=== PATIENT | female | born 1990 | race Caucasian/White ===

== ENCOUNTER → 2017-12-16 15:34 | Outpatient (CLI) | payer SELFPAY ==
[2017-12-16 19:41] LABS: Chlamydia Trachomatis by PCR Negative (Negative); Neisserai gonorrhoeae by PCR Negative (Negative); Probe Check PASS; Sample Adequacy Control PASS; Specimen Processing Control PASS
[2017-12-22 14:38] LABS: HPV Reflexed? NOT INDICATED
== END ==
PROVIDERS: Visit Provider Obstetrics & Gynecology
DX: Z12.4 Encounter for screening for malignant neoplasm of cervix (principal); Z11.3 Encounter for screening for infections with a predominantly sexual mode of transmission
CPT/HCPCS: 87491; 87591; 88175; G0145

== ENCOUNTER → 2017-12-31 10:31 | Outpatient (CLI) | payer SELFPAY ==
[2017-12-31 12:05] LABS: Color, Urine Yellow (Yellow); Glucose, Dipstick Normal (Normal); Ketone-Dipstick Negative (Negative); Leukocyte Esterase-Dipstick 25 /ul (Negative); Nitrite-Dipstick Negative (Negative); Occult Blood-Urine 250 /ul (Negative); Protein-Dipstick 15 mg/dl (Negative); Urine Bilirubin Dipstick Negative (Negative); Urine Clarity Sl. Cloudy (Clear); Urine Urobilinogen Normal (Normal)
[2017-12-31 12:07] LABS: Absolute Lymphocyte Count 1.01 X10^3/ul (0.83-4.51); Absolute Neutrophil Count 3.9 X10^3/uL (2.0-7.7); Basophil# 0.01 X10^3/uL; Basophil% 0.2 % (0-1); Eosinophil# 0.02 X10^3/uL; Eosinophils% 0.4 % (0-5); Hematocrit 38.4 % (37-47); Hemoglobin 13.3 g/dl (12.0-15.0); Lymphocyte # 1.01 X10^3/ul (4.0); Lymphocyte % 18.9 % (19-41); Mean Corp Hgb Conc 34.6 g/gl (32-36); Mean Corpuscular Hgb 31.1 pg (27.0-32.0); Mean Corpuscular Volume 89.7 fL (81-99); Mean Platelet Vol. 11.7 fl (6.2-12.0); Monocyte# 0.36 X10^3/uL; Monocyte% 6.8 % (0-10); Neutrophil # 3.93 X10^3/uL (2.7-7.7); Neutrophil % 73.7 % (47-70); POSITIVE COUNT NO; POSITIVE DIFFERENTIAL NO; POSITIVE MORPHOLOGY NO; Platelet Count 185 K/mm3 (150-450); RBC Distribution Width CV 11.9 % (11.6-14.6); RBC Distribution Width SD 38.1 fl (35.1-43.9); Red Blood Count 4.28 M/mm3 (4.2-5.4); White Blood Count 5.3 K/mm3 (4.4-11.0)
[2017-12-31 13:01] LABS: HIV - WCH Non-Reactive (Nonreactive); Rubella IgG 200.2 IU/mL
[2018-01-01 01:58] LABS: Prenatal RPR NONREACTIVE (NONREACTIVE)
[2018-01-01 11:24] LABS: HEPATITIS B SURFACE AG Negative (Negative); Hep C Antibodies <0.1 s/co ratio (0.0-0.9)
== END ==
PROVIDERS: Visit Provider Obstetrics & Gynecology
DX: Z34.81 Encounter for supervision of other normal pregnancy, first trimester (principal)
CPT/HCPCS: 36415; 81002; 84443; 85025; 86703; 86762; 86803; 87340

== ENCOUNTER → 2018-05-12 10:14 | Outpatient (CLI) | payer OTHER, SELFPAY ==
[2018-05-12 10:40] LABS: Hematocrit 34.5 % (37-47); Hemoglobin 11.5 g/dl (12.0-15.0); Mean Corp Hgb Conc 33.3 g/gl (32-36); Mean Corpuscular Hgb 31.3 pg (27.0-32.0); Mean Corpuscular Volume 93.8 fL (81-99); Mean Platelet Vol. 10.5 fl (6.2-12.0); Platelet Count 180 K/mm3 (150-450); RBC Distribution Width CV 13.2 % (11.6-14.6); RBC Distribution Width SD 44.9 fl (35.1-43.9); Red Blood Count 3.68 M/mm3 (4.2-5.4); White Blood Count 6.4 K/mm3 (4.4-11.0)
[2018-05-12 10:42] LABS: Scan Indicated on CBC? Y/N NO
[2018-05-12 11:21] LABS: Glucose Challenge Gest 1H 50g 68 mg/dL (70-140)
== END ==
PROVIDERS: Visit Provider Obstetrics & Gynecology
DX: Z34.83 Encounter for supervision of other normal pregnancy, third trimester (principal)
CPT/HCPCS: 36415; 82950; 85027; 86850

== ENCOUNTER → 2018-07-09 13:03 | Outpatient (CLI) | payer OTHER, SELFPAY | PROVIDERS: Visit Provider Obstetrics & Gynecology | DX: Z36.85 Encounter for antenatal screening for Streptococcus B (principal) | CPT/HCPCS: 87081 ==

== ENCOUNTER 2018-08-08 06:40 | Inpatient (IN) | payer SELFPAY ==
[2016-05-03 18:51] VITALS: BMI 18.0
[2018-08-08 05:59] VITALS: BMI 22.2
[2018-08-08] MEDS: Lactated Ringers 1,000 ML 50 ML IV (06:00)
--- NOTE | 2018-08-08 06:57 | PCM.HPOB.BLA ---
History and Physical Date of Admission: 08/08/18 OB HISTORY AND PHYSICAL EXAMINATION History of this : 28 yo female Ab0 with EDC 08/04/2018 by 9 weeks 1 day Ultrasound, presents to Labor and Delivery at 40 4/7 wk EGA with UCs. Variable decelerations noted and postdates, ADMIT. care remarkable for: O NEGATIVE Group B strep negative. 1.) Possible POLYDACTYLY on feet, not able to see hands at 20 wk 2.) Pt's 1st cousin has Down Syndrome, has two first cousins with developmental delay 3.) Anxiety - takes Sertraline Pertinent Past Medical History: negative Allergies: No Known Allergies Medications: During - Stress Formula tablet; iron 325 mg (65 mg iron) tablet; 28 mg iron-800 mcg tablet; sertraline 50 mg tablet; Vitamin D3 1,000 unit capsule Review of Systems: contractions PHYSICAL EXAMINATION General Appearance: 28 yo female in no acute distress Vital Signs: AF, VSS Heart: RRR without rubs or gallops Lungs: CTA x 2 Breasts: deferred Abdomen: gravid Pelvis: Cervix: 3-4/80/-2 sl posterior AROM clear fluid. Presentation: cephalic Fetus: Size: AGA Movement: present Heart: 120-130 avg variability. Accels to 160s one variable to 80s of short duration. Spont decel just prior to a UC UCs irregular, q 2-7 mins Impression /Plan: Intrauterine . 40 4/7 wk EGA with contractions. Variable deceleration noted to 80s on EFM overall Category I tracing, reassuring. Baby with possible polydactyly on sono. Repeat sono declined. O negative. GBS negative. Admit for labor and delivery. Watch tolerance of labor, progress. See Progress Notes for Changes: Physician's Signature: Date:
[2018-08-08 07:11] LABS: Absolute Lymphocyte Count 1.52 X10^3/ul (0.83-4.51); Absolute Neutrophil Count 5.7 X10^3/uL (2.0-7.7); Basophil# 0.01 X10^3/uL; Basophil% 0.1 % (0-1); Eosinophil# 0.08 X10^3/uL; Hematocrit 34.6 % (37-47); Hemoglobin 11.8 g/dl (12.0-15.0); Lymphocyte # 1.52 X10^3/ul (4.0); Lymphocyte % 19.3 % (19-41); Mean Corp Hgb Conc 34.1 g/gl (32-36); Mean Corpuscular Hgb 31.3 pg (27.0-32.0); Mean Corpuscular Volume 91.8 fL (81-99); Mean Platelet Vol. 11.7 fl (6.2-12.0); Monocyte# 0.55 X10^3/uL; Neutrophil # 5.72 X10^3/uL (2.7-7.7); Neutrophil % 72.5 % (47-70); Platelet Count 146 K/mm3 (150-450); RBC Distribution Width CV 12.8 % (11.6-14.6); RBC Distribution Width SD 42.9 fl (35.1-43.9); Red Blood Count 3.77 M/mm3 (4.2-5.4); White Blood Count 7.9 K/mm3 (4.4-11.0)
[2018-08-08 07:16] LABS: POSITIVE COUNT NO; POSITIVE DIFFERENTIAL NO; POSITIVE MORPHOLOGY NO
[2018-08-08] MEDS: Oxytocin 30 units/NS 500 ml 30 UNITS/500 ML IV.SOLN IV (09:59)
--- NOTE | 2018-08-08 12:43 | PCM.PN.BLA ---
Progress Note LABOR PROGRESS NOTE uncomfortable and using nitrous oxide Does not plan other pain med at this point from prior discussion. AVSS pitocin at 4 mIU/min IFM: 120-130s avg variability. Accels noted. Early decelerations, variables (mild to 90s) UCs q 4-5 mins but appear strong CX; per RN check 5/80/-2 A/P: 40 4/7 wk EGA early labor. AROM and Pitocin to augment. IUPC and scalp lead inserted per RN. Reassuring IFM with early decelerations and variables. Amnioinfusion , position changes. Continue labor. Watch progress, descent position changes prn. Continue Pitocin. Antibody screen NEG. RHOGAM workup needed after delivery.
[2018-08-08] MEDS: Oxytocin 30 units/NS 500 ml 30 UNITS/500 ML IV.SOLN 334 UNITS IV (14:04)
--- NOTE | 2018-08-08 14:11 | PCM.OPRPT ---
Vaginal Delivery Maternal Presentation: Active Labor Amniotic Membrane Rupture Type: Artificial Amniotic Fluid Description: Clear Final HEYDI: 08/04/18 Final HEYDI Source: US <20 weeks Gestational age: 40 Weeks and 4 Days Date of Procedure: 08/08/18 Pre-Operative Diagnosis: 40 4/7 wk labor Post-Operative Diagnosis: same Surgery/ Procedure Performed: Vacuum Assisted Vaginal Delivery - Single pull into green zone +2 station. Vacuum used due to maternal refusal to push. Using nitrous oxide and baby at perineum, painful. Type of Anesthesia: None, Local with 1% lidocaine Description of Procedure: Vacuum assisted vaginal delivery baby at +2 station, patient refusing to push. Using nitrous oxide. Episiotomy created. Kiwi vacuum used with single pull into green zone Delivery of vtx JEREMIE. Nuchal cord reduced at delivery. Forward rotation of anterior shoulder and lateral traction resulted in delivery. Infant to maternal abdomen. OP and nares then bulb suctioned. Cord clamped times two and cut. Routine cord blood for typing collected. Ap 8/9 Repositioned patient, still using nitrous oxide, on bed for repair of midline episiotomy under 1% lidocaine local to he hemostatic and intact with 3-0 Vicryl. No other lacerations noted. IV pitocin started to accomplish delivery of placenta and prevent hemorrhage. Placenta delivered by spont expulsion uterine contractions, and by expression 3v cord normal appearing and intact with trailing membranes Patient still using nitrous oxide after delivery of placenta, after repair of episiotomy. Encouraged to STOP the nitrous oxide and begin enjoying her baby. EBL 350 Ray Randell and needle count correct times two. Pt and tolerated delivery and then to recovery, stable condition. Presentation: Vertex, JEREMIE Placental Delivery Description: Spontaneous, Expressed Placenta Disposition: [facility] Cord Vessel Description: 3 Vessels Nuchal Cord Compression: Without compression Cord Entanglement: Around neck x 1, loose Estimated Blood Loss: 350 A gender: Female (1 minute): 8 (5 minute): 9 Episiotomy Description: Midline Laceration: None Medications given after delivery: IV Pitocin Complications: None
[2018-08-08] MEDS: Oxytocin 30 units/NS 500 ml 30 UNITS/500 ML IV.SOLN 167 UNITS IV (14:34)
[2018-08-08] MEDS: Acetaminophen 500 MG Tablet 1000 MG PO (16:00)
[2018-08-08] MEDS: Amnioinfusion- 0.9% NS 1,000 ML IV.SOLN. INTRA-UTER (17:10)
[2018-08-08] MEDS: Ibuprofen 600 MG Tablet PO (20:29)
[2018-08-08] MEDS: Dibucaine 30 GM Tube 1 APPLIC TOPICAL (20:30)
[2018-08-08] MEDS: Senna/Docusate Sodium 1 Tablet PO (20:30)
[2018-08-08 20:31] VITALS: BP 110/62; PULSE 69; RESP 17; TEMP 36.9
[2018-08-09] MEDS: Ibuprofen 600 MG Tablet PO ×2 (02:57→10:17)
[2018-08-09 04:00] VITALS: BP 101/62; PULSE 55; RESP 17; TEMP 36.6
[2018-08-09 06:56] LABS: Hematocrit 32.8 % (37-47); Hemoglobin 11.3 g/dl (12.0-15.0); Mean Corp Hgb Conc 34.5 g/gl (32-36); Mean Corpuscular Hgb 31.6 pg (27.0-32.0); Mean Corpuscular Volume 91.6 fL (81-99); Mean Platelet Vol. 11.3 fl (6.2-12.0); Platelet Count 135 K/mm3 (150-450); RBC Distribution Width SD 43.4 fl (35.1-43.9); Red Blood Count 3.58 M/mm3 (4.2-5.4); White Blood Count 9.3 K/mm3 (4.4-11.0)
[2018-08-09 07:25] LABS: Scan Indicated on CBC? Y/N NO
[2018-08-09 08:15] VITALS: BP 122/85; PULSE 70; RESP 16; TEMP 36.7; O2SAT 99
--- NOTE | 2018-08-09 10:02 | NURSING ---
post tensioning ironworker helper, Brianna Barrett, notified of patient's history of anxiety. She will stop in to see patient today prior to her discharge.
[2018-08-09] MEDS: Sertraline 50 MG Tablet PO (10:16)
[2018-08-09] MEDS: Prenatal Vits Tablet 1 TABLET PO (10:17)
--- NOTE | 2018-08-09 10:46 | PCM.PN.OB ---
Subjective: Patient without complaints. Breast-feeding going well. Wants to go home later today if baby is able to go. - Physical Exam Vital Signs Temp Pulse Resp BP Pulse Ox 98.0 F 70 16 122/85 H 99 08/09/18 08:15 08/09/18 08:15 08/09/18 08:15 08/09/18 08:15 08/09/18 08:15 Oxygen Delivery Method Room Air Weight: 142 lb Body Mass Index (BMI) 22.2 Intake and Output for Last 24 Hours 08/07/18 08/08/18 08/09/18 23:59 23:59 23:59 Intake Total 1981 / 1981 Output Total 1550 / 1550 Balance 432 / 432 Laboratory Tests Past 24 Hrs 08/09/18 06:45 WBC 9.3 RBC 3.58 L Hgb 11.3 L Hct 32.8 L MCV 91.6 MCH 31.6 MCHC 34.5 RDW 13.0 RDW Differential 43.4 Plt Count 135 L MPV 11.3 Medical Necessity - Tobacco Use Smoking Status: Never smoker Assessment/Plan Doing well day #1. Will release to home with routine instructions.
--- NOTE | 2018-08-09 12:20 | CASEMGMT ---
Social Work - Brief Assessment Labor and Delivery Unit Date of Referral/Notification: 08/09/2018 Time of Referral: 1000 Referred By: Za Beaulieu RN Reason for Referral: maternal history of anxiety Date of Intervention: 08/09/2018 Time of Intervention: 1220 Informant: Medical record and mother of baby (MOB) Glendy Trujillo History: SUSAN is a 28 year old [place] female, delivered baby girl Bibiana Trujillo on 08-08-2018. Bibiana is the second child for MOB, with first child (Chay) born in March 2016 at [facility]. Father to both children is Curtis Trujillo, MOB's . MOB with care starting at 8 weeks gestation and regular visits thereafter. Chart indicates there is a family history of Developmental Disability in the father's side (2 cousins to the father) and then MOB's side a cousin with Down's syndrome. Record indicates SUSAN has history of anxiety and is treated by Zoloft, including during this . MOB reports to feel that Zoloft is adequate to manage anxiety symptoms, denies any history of suicidal thoughts, plans, intent or past attempts. MOB reports that worries a lot and the Zoloft helps to manage this. MOB report home situation is safe and adequate, that lives with FOB and son in the basement of FOB's parents home. MOB reports to feel to have adequate support from family. NEETA works finishing furniture and is home each evening to help out. Assessment: MOB pleasant and willing to talk to public health social worker. MOB reports that one of MOB's sisters will be coming to the home to help MOB for a few weeks. Additionally, MOB's [id number] can help as needed. MOB reports to feel to have needed supplies for baby including a safe sleep space and a car seat. MOB reports mood is good at this time, denies any worsening of anxiety during this . Eye contact during social work visit good, affect and moot appropriate and congruent. MOB attentive to baby, holding baby, gazing at baby, and touching baby gently. MOB reports intent to remain on Zoloft in the paspalum period. MOB listened to education on mood and anxiety disorders, risk factors present, and importance of talking with health care providers and/or support people should symptoms worsen or change. MOB verbalizes understanding and agreement. MOB reports to be looking forward to returning home, and reports to feel a positive and loving connectin to baby Bibiana already. Plan: MOB and baby to home when ready, likely later today. MOB accepting of informational packet on mood and anxiety disorders, including local resources should MOB need additional support for such in the future. No further needs requested or indicated. -DANILO Chacon, IT HELP DESK TECHNICIAN
[2018-08-09 12:38] VITALS: BP 122/77; PULSE 77; RESP 16; TEMP 36.5; O2SAT 95
--- NOTE | 2018-08-09 14:34 | NURSING ---
Patient given After a Vaginal handout from [facility] for discharge instructions. Added Make appointment with office in 6 weeks for follow-up.
[2018-08-09 15:21] VITALS: BP 123/78; PULSE 82; RESP 16; TEMP 36.5; O2SAT 96
--- NOTE | 2018-08-16 17:04 | NURSING ---
Voicemail left. Law MILLARD
== END 2018-08-09 16:20 | disposition home or self-care (01) | DRG 807 ==
LOC: WPOUT 06:47
PROVIDERS: Admitting Provider Obstetrics & Gynecology; Referring Provider Obstetrics & Gynecology; Visit Provider Obstetrics & Gynecology
DX: O76 Abnormality in fetal heart rate and rhythm complicating labor and delivery (principal); Z37.0 Single live birth; O48.0 Post-term pregnancy; O69.81X0 Labor and delivery complicated by cord around neck, without compression, not applicable or unspecified; O90.1 Disruption of perineal obstetric wound; O99.344 Other mental disorders complicating childbirth; F41.9 Anxiety disorder, unspecified; O35.8XX0 Maternal care for other (suspected) fetal abnormality and damage, not applicable or unspecified; Z3A.40 40 weeks gestation of pregnancy
CPT/HCPCS: 59025; 59050; 85025; 85027; 86850; 86900; 99218; J7030; J7120; G0378

== ENCOUNTER → 2020-03-15 15:29 | Outpatient (CLI) | payer SELFPAY ==
[2020-03-15 16:37] LABS: Absolute Lymphocyte Count 1.92 X10^3/uL (0.83-4.51); Basophil# 0.01 X10^3/uL; Basophil% 0.1 % (0-1); Color, Urine Yellow (Yellow); Eosinophil# 0.05 X10^3/uL; Eosinophils% 0.5 % (0-5); Glucose, Dipstick Normal (Normal); Hematocrit 34.8 % (37-47); Hemoglobin 11.6 g/dL (12.0-15.0); Ketone-Dipstick Negative (Negative); Leukocyte Esterase-Dipstick Negative /ul (Negative); Lymphocyte # 1.92 X10^3/ul (4.0); Lymphocyte % 20.2 % (19-41); Mean Corp Hgb Conc 33.3 g/dL (32-36); Mean Corpuscular Hgb 30.4 pg (27.0-32.0); Mean Corpuscular Volume 91.3 fL (81-99); Mean Platelet Vol. 11.4 fl (6.2-12.0); Monocyte# 0.49 X10^3/uL; Monocyte% 5.2 % (0-10); NRBC Flagged by Analyzer 0 % (0-5); Neutrophil # 6.99 X10^3/uL (2.7-7.7); Neutrophil % 73.7 % (47-70); Nitrite-Dipstick Negative (Negative); Occult Blood-Urine Negative /ul (Negative); Platelet Count 224 K/mm3 (150-450); Protein-Dipstick Negative (Negative); RBC Distribution Width CV 12.3 % (11.6-14.6); RBC Distribution Width SD 40.6 fl (35.1-43.9); Red Blood Count 3.81 M/mm3 (4.2-5.4); Urine Bilirubin Dipstick Negative (Negative); Urine Clarity Sl. Cloudy (Clear); Urine Urobilinogen Normal (Normal); White Blood Count 9.5 K/mm3 (4.4-11.0)
[2020-03-15 17:13] LABS: Thyroid Stim Hormone (TSH) 0.98 uIU/mL (0.358-3.74)
[2020-03-16 09:21] LABS: HIV - WCH Non-Reactive (Nonreactive); Hepatitis B Surface Antigen Non-Reactive (Nonreactive); Hepatitis C Antibody Non-Reactive (Nonreactive); Rubella IgG Reactive (Nonreactive)
[2020-03-20 00:13] LABS: Chlamydia By Nucleic Acid AMP Negative (Negative)
[2020-03-20 10:14] LABS: Gonococcus By Nucleic Acid AMP Negative (Negative)
[2020-03-20 15:34] LABS: HPV Reflexed? NOT INDICATED
[2020-03-22 03:02] LABS: Prenatal RPR NONREACTIVE (NONREACTIVE)
== END ==
PROVIDERS: Visit Provider Obstetrics & Gynecology
DX: Z34.82 Encounter for supervision of other normal pregnancy, second trimester (principal); Z12.4 Encounter for screening for malignant neoplasm of cervix; Z11.3 Encounter for screening for infections with a predominantly sexual mode of transmission
CPT/HCPCS: 36415; 81002; 84443; 85025; 86703; 86762; 86803; 87340; 87491; 87591; 88175; G0145

== ENCOUNTER → 2020-05-17 13:28 | Outpatient (CLI) | payer OTHER, SELFPAY ==
[2020-05-17 15:50] LABS: Hematocrit 34.4 % (37-47); Hemoglobin 11.6 g/dL (12.0-15.0); Mean Corp Hgb Conc 33.7 g/dL (32-36); Mean Corpuscular Hgb 31.4 pg (27.0-32.0); Mean Corpuscular Volume 93.2 fL (81-99); Mean Platelet Vol. 11.3 fl (6.2-12.0); Platelet Count 220 K/mm3 (150-450); RBC Distribution Width CV 12.8 % (11.6-14.6); RBC Distribution Width SD 43.8 fl (35.1-43.9); Red Blood Count 3.69 M/mm3 (4.2-5.4); White Blood Count 9.1 K/mm3 (4.4-11.0)
[2020-05-17 15:54] LABS: POSITIVE COUNT NO; POSITIVE DIFFERENTIAL NO; POSITIVE MORPHOLOGY NO; Scan Indicated on CBC? Y/N NO
[2020-05-17 16:05] LABS: Glucose Challenge Gest 1H 50g 125 mg/dL (70-140)
== END ==
PROVIDERS: Visit Provider Obstetrics & Gynecology
DX: Z34.83 Encounter for supervision of other normal pregnancy, third trimester (principal)
CPT/HCPCS: 36415; 82950; 85027; 86850

== ENCOUNTER → 2020-07-13 | Outpatient (CLI) | payer SELFPAY | END | disposition home or self-care (01) | LOC: LABSPEC 14:39 | PROVIDERS: Visit Provider Obstetrics & Gynecology | DX: Z36.85 Encounter for antenatal screening for Streptococcus B (principal) | CPT/HCPCS: 87081 ==

== ENCOUNTER 2020-07-30 00:25 | Inpatient (IN) | payer SELFPAY, OTHER ==
[2020-07-29 22:35] VITALS: BP 136/81; PULSE 55; TEMP 36.3
[2020-07-29 23:07] VITALS: BMI 22.2
[2020-07-30] VITALS (14 sets, daily range): BP systolic 109–149; BP diastolic 61–85; PULSE 59–90; RESP 16–18; TEMP 36.5–36.9
[2020-07-30] MEDS: Lactated Ringers 1,000 ML 200 ML IV (00:33)
[2020-07-30] MEDS: 0.9% Saline Lock 10 ML Syringe IV (00:50)
[2020-07-30 00:51] LABS: Absolute Lymphocyte Count 2.61 X10^3/uL (0.83-4.51); Absolute Neutrophil Count 7.2 X10^3/uL (2.0-7.7); Basophil# 0.02 X10^3/uL; Basophil% 0.2 % (0-1); Eosinophil# 0.02 X10^3/uL; Eosinophils% 0.2 % (0-5); Hematocrit 38.4 % (37-47); Hemoglobin 12.9 g/dL (12.0-15.0); Lymphocyte # 2.61 X10^3/ul (0.83-4.51); Lymphocyte % 24.9 % (19-41); Mean Corp Hgb Conc 33.6 g/dL (32-36); Mean Corpuscular Hgb 31.1 pg (27.0-32.0); Mean Corpuscular Volume 92.5 fL (81-99); Mean Platelet Vol. 11.3 fl (6.2-12.0); Monocyte# 0.64 X10^3/uL; Monocyte% 6.1 % (0-10); NRBC Flagged by Analyzer 0 % (0-5); Neutrophil # 7.15 X10^3/uL (2.7-7.7); Neutrophil % 68.3 % (47-70); Platelet Count 183 K/mm3 (150-450); RBC Distribution Width CV 12.4 % (11.6-14.6); RBC Distribution Width SD 42.1 fl (35.1-43.9); Red Blood Count 4.15 M/mm3 (4.2-5.4); White Blood Count 10.5 K/mm3 (4.4-11.0)
[2020-07-30] MEDS: Oxytocin 30 units/NS 500 ml 30 UNITS/500 ML IV.SOLN 334 UNITS IV (00:56)
--- NOTE | 2020-07-30 01:27 | PCM.HP.BLA ---
History and Physical Date of Admission: 07/30/20 Chief complaint: Contractions History of present illness: 30 at 39 weeks and 2 days HEYDI: 08/04/2020 by LMP arrives with contractions. Denies headache, visual changes, chest pain, shortness of breath, nausea vomiting, right upper quadrant pain. Patient states good movement. Obstetric history: G1: Vacuum-assisted vaginal delivery at 39 weeks G2: Vacuum-assisted vaginal delivery at 40 weeks G3: Current Past medical history: Anxiety Medications: vitamin, sertraline Past surgical history: Negative Allergies: No known drug allergies Social history: Denies smoking, alcohol use, drug use Family history: Denies history DVT or PE Review of systems: Besides above pertinent positives a full review of systems was performed and found to be negative Physical exam: Vital signs: Blood pressure 129/73 pulse 69 temperature 97.4 General: Normal-appearing no acute distress HEENT: Normocephalic atraumatic no cervical lymphadenopathy Cardiac/respiratory: Nonlabored breathing, no use of accessory muscles Abdomen: Soft, nontender, gravid Pelvic exam: Cervical exam 10/100%/+2. AROM clear fluid Extremities: No peripheral edema normal peripheral pulses Psych: Normal affect normal demeanor nonpressured speech Labs: White blood cell count 10.5 hemoglobin 12.9 hematocrit 38.4 platelets 183 Assessment and plan: 30-year-old G3, P2 at 39 weeks and 2 days in labor Admit labor and delivery CEFM GBS negative Rh-: For RhoGam Routine orders Anesthesia to see
--- NOTE | 2020-07-30 01:57 | EX.PCM.OBRPT ---
Vaginal Delivery Findings Description of Procedure: Normal spontaneous vaginal delivery of a viable female , vertex JEREMIE. Head and shoulders were delivered with ease. Cord was cut and clamped. Baby was handed off to nursing. Placenta was delivered via cord traction and fundal massage. Bilateral labial lacerations were noted and repaired in typical fashion. EBL 350 cc Apgars per histologic aide (please refer to histologic aide documentation)
[2020-07-30] MEDS: Ibuprofen 600 MG Tablet PO ×4 (02:50→21:07)
--- NOTE | 2020-07-30 03:58 | NURSING ---
0335 Assisted pt up to BR, pericare discussed and demonstrated, s/s to report discussed, pt tolerated well. Proceeded to walk in halls to room, tolerated well with no c/o dizziness or lightheadedness. 0345 Pt in [place] to visit
[2020-07-30] MEDS: Sertraline 50 MG Tablet PO (09:03)
--- NOTE | 2020-07-30 12:52 | PN.OBGYN_ITS ---
Subjective Subjective Patient seen and examined. No overnight complaints. Pain well controlled. Minimal lochia. Objective Data Objective Data Vital Signs: Vital Signs Temp Pulse Resp BP 98.1 F 90 18 109/69 07/30/20 09:19 07/30/20 09:19 07/30/20 09:19 07/30/20 09:19 Oxygen Delivery Method Room Air Weight: 141 lb 15.643 oz Body Mass Index (BMI) 22.2 Intake & Output: Intake and Output for Last 24 Hours 07/28/20 07/29/20 07/30/20 23:59 23:59 23:59 Intake Total 523.33 / 523.33 Output Total 400 / 400 Balance 123.33 / 123.33 Lab / Micro Data Result Diagrams: 07/30/20 00:33 Labs: Laboratory Results - last 24 hr 07/30/20 07/30/20 07/30/20 00:33 00:33 03:25 WBC 10.5 RBC 4.15 L Hgb 12.9 Hct 38.4 MCV 92.5 MCH 31.1 MCHC 33.6 RDW Std Deviation 42.1 RDW Coeff of Marcelo 12.4 Plt Count 183 MPV 11.3 Immature Gran % (Auto) 0.300 Neut % (Auto) 68.3 Lymph % (Auto) 24.9 Union % (Auto) 6.1 Eos % (Auto) 0.2 Baso % (Auto) 0.2 Absolute Neuts (auto) 7.2 Absolute Lymphs (auto) 2.61 Nucleated RBC % 0 Blood Type O NEGATIVE Antibody Screen NEGATIVE Screen NEGATIVE Baby's Blood Type A POSITIVE Baby's TEX NEGATIVE Physical Exam Const alert, oriented x3, no apparent distress and average body habitus HEENT normocephalic and moist oral mucous membranes Head and Scalp: atraumatic Face and Sinus: normal facial exam Neck full ROM and no lymphadenopathy Resp normal respiratory effort, no retractions and no use of accessory muscles GI normal to inspection, nondistended, normoactive bowel sounds GI Narrative: Uterus is firm and below umbilicus Extremity normal to inspection, full ROM and no clubbing, cyanosis or edema Psych mental status grossly normal, affect normal, speech normal and activity/motor behavior normal Assessment & Plan (1) : PLAN: day 0. Breast-feeding. Baby in special care nursery on CPAP, currently weaning. Likely discharge home tomorrow if okay with installer soft top.
[2020-07-31] VITALS: BP 114/69; PULSE 70; RESP 16; TEMP 36.4
[2020-07-31] MEDS: Ibuprofen 600 MG Tablet PO ×2 (03:27→10:15)
[2020-07-31 04:14] VITALS: BP 114/75; PULSE 63; RESP 16; TEMP 36.3
[2020-07-31 07:56] VITALS: BP 114/65; PULSE 71; RESP 16; TEMP 36.4
--- NOTE | 2020-07-31 08:17 | PN.OBGYN_ITS ---
Subjective Subjective No overnight complaints. Pain well controlled. Objective Data Objective Data Vital Signs: Vital Signs Temp Pulse Resp BP 97.5 F L 71 16 114/65 07/31/20 07:56 07/31/20 07:56 07/31/20 07:56 07/31/20 07:56 Oxygen Delivery Method Room Air Weight: 141 lb 15.643 oz Body Mass Index (BMI) 22.2 Intake & Output: Intake and Output for Last 24 Hours 07/29/20 07/30/20 07/31/20 23:59 23:59 23:59 Intake Total 523.33 / 523.33 Output Total 400 / 400 Balance 123.33 / 123.33 Lab / Micro Data Result Diagrams: 07/30/20 00:33 Physical Exam Const alert, oriented x3 and no apparent distress HEENT normocephalic and moist oral mucous membranes Head and Scalp: atraumatic Face and Sinus: normal facial exam Eyes PERRL and EOMs intact bilaterally Neck full ROM and no lymphadenopathy Resp normal respiratory effort, no retractions and no use of accessory muscles GI normal to inspection, nondistended, normoactive bowel sounds GI Narrative: Uterus firm and below umbilicus Extremity normal to inspection, full ROM and no clubbing, cyanosis or edema Skin no rashes or lesions noted Psych mental status grossly normal, affect normal, speech normal and activity/motor behavior normal Assessment & Plan (1) : PLAN: day 1. Breast-feeding. Baby previously on CPAP to be evaluated by senior recruiter today. If baby okayed by senior recruiter to discharge home mom okay to discharge home today.
--- NOTE | 2020-07-31 08:18 | PCM.DC ---
Discharge Instructions Diet Discharge Diet: No restrictions Activity Discharge Activity: Return to Normal Activity, May Drive and May Shower May resume sexual activity in: 4-6 weeks Weight Bearing Status: Weight bearing as tolerated Dressing / Incision Call your doctor if your incision/area has: Continuous Slow Oozing, Increased Pain/ Swelling and Foul Smelling Discharge Call your doctor if you observe: Fever of 101 or Higher, Shortness of breath and Chest pain Follow Up Care Please Follow Up With: Thuan Kasper MD When: 2-week telehealth visit, 4 to 6-week visit Test Results: Test results from this visit will be discussed in further detail at your follow-up appointment, if applicable. Discharge Plan Admission Admit Date/Time: 07/30/20 00:25 Attending Provider: Aaron Trujillo Primary Care Provider: Care Physician,[place] Primary Discharge Orders/Prescriptions Prescriptions: No Action Tablet tablet 1 tab PO DAILY RF: 0 ferrous sulfate [iron] 325 MG tablet 325 mg PO RF: 0 ergocalciferol (vitamin D2) [Vitamin D2] 50,000 UNIT capsule RF: 0 sertraline 50 MG tablet 50 mg PO RF: 0
[2020-07-31] MEDS: Sertraline 50 MG Tablet PO (10:15)
[2020-07-31 14:40] VITALS: BP 112/61; PULSE 80; RESP 15; TEMP 36.6
[2020-07-31 19:48] VITALS: BP 104/61; PULSE 77; RESP 16; TEMP 36.8
[2020-07-31] MEDS: Acetaminophen 500 MG Tablet 1000 MG PO (19:54)
[2020-08-01 01:16] VITALS: BP 128/78; PULSE 69; RESP 16; TEMP 36.6
[2020-08-01] MEDS: Ibuprofen 600 MG Tablet PO ×2 (01:20→09:16)
[2020-08-01 03:52] VITALS: BP 117/70; PULSE 69; RESP 16; TEMP 36.5
[2020-08-01] MEDS: Acetaminophen 500 MG Tablet 1000 MG PO (06:26)
[2020-08-01 09:06] VITALS: BP 104/69; PULSE 74; RESP 16; TEMP 36.8; O2SAT 100
[2020-08-01] MEDS: Sertraline 50 MG Tablet PO (09:10)
--- NOTE | 2020-08-01 10:29 | PCM.DC.BLA ---
Discharge Summary Date of Admission: 07/30/20 Date of Discharge: 08/01/20 Summary: Patient arrived in labor, progressed appropriately. Spontaneous vaginal delivery on 07/30/2020. Normal recovery. Baby required CPAP, please refer to commissioner public works documentation, after delivery and was monitored in the special care nursery. Okay to discharge home today 08/01/2020 Physical Exam Const alert, oriented x3 and no apparent distress HEENT normocephalic Neck full ROM and no lymphadenopathy Resp normal respiratory effort, no retractions and no use of accessory muscles GI normal to inspection, nondistended, normoactive bowel sounds GI Narrative: Uterus firm and below umbilicus Extremity normal to inspection and full ROM Psych mental status grossly normal, thought process normal, cooperative, affect normal and speech normal Meaningful Use Info Meaningful Use Diagnoses (Choose all that apply): None applicable Discharge Plan Admission Admit Date/Time: 07/30/20 00:25 Attending Provider: Aaron Trujillo Primary Care Provider: Care Physician,No Primary Instructions Additional Instructions / Restrictions: May return to normal activities. No intercourse for 4 to 6 weeks. Weightbearing as tolerated. Normal diet. Call if fever 101 or higher, increased vaginal bleeding, chest pain, shortness of breath. Follow-up 2-week telehealth visit, 4 to 6-week visit. Discharge Orders/Prescriptions Prescriptions: No Action Tablet tablet 1 tab PO DAILY RF: 0 ferrous sulfate [iron] 325 MG tablet 325 mg PO RF: 0 ergocalciferol (vitamin D2) [Vitamin D2] 50,000 UNIT capsule RF: 0 sertraline 50 MG tablet 50 mg PO RF: 0 Referrals / Follow Up: Care Physician,No Primary [Primary Care Provider] - Disposition Disposition (needs filled in before D/C Order can be placed): Home, self care
--- NOTE | 2020-08-01 10:33 | PCM.PN.OB ---
Subjective Subjective No overnight complaints. Pain well controlled. Objective Data Objective Data Vital Signs: Vital Signs Temp Pulse Resp BP Pulse Ox 98.2 F 74 16 104/69 100 08/01/20 09:06 08/01/20 09:06 08/01/20 09:06 08/01/20 09:06 08/01/20 09:06 Oxygen Delivery Method Room Air Weight: 141 lb 15.643 oz Body Mass Index (BMI) 22.2 Intake & Output: Intake and Output for Last 24 Hours 07/30/20 07/31/20 08/01/20 23:59 23:59 23:59 Intake Total 523.33 / 523.33 Output Total 400 / 400 Balance 123.33 / 123.33 Lab / Micro Data Result Diagrams: 07/30/20 00:33 Physical Exam Const alert, oriented x3, no apparent distress and average body habitus HEENT normocephalic Head and Scalp: atraumatic Neck full ROM and no lymphadenopathy Resp normal respiratory effort, no retractions and no use of accessory muscles GI normal to inspection, nondistended, normoactive bowel sounds GI Narrative: Uterus firm and below umbilicus Extremity normal to inspection, full ROM and no clubbing, cyanosis or edema Psych mental status grossly normal, affect normal, speech normal and activity/motor behavior normal Assessment & Plan (1) : PLAN: day 2. Breast-feeding. Baby previously on CPAP okayed by checkering machine adjuster for home today. Patient okay to discharge home today.
--- NOTE | 2020-08-01 14:59 | CASEMGMT ---
Social Work - Brief Assessment Labor and Delivery Unit Date of Referral/Notification: 07.31.2020 Time of Referral: 0830 Referred By: verbal notification by nursing staff Reason for Referral: maternal history of anxiety; baby admitted to [facility] Date of Intervention: 08.01.2020 Time of Intervention: 1240 Informant: Medical records including prior social work assessment, and mother of baby (MOB) Glendy Trujillo; father of baby (FOB) Curtis Trujillo also present. History: MOB is a 30 year old [place] female, delivered baby girl Marisela Trujillo on 07.30.2020. Marisela is the third child for MOB, with first child Michelle (born 03.13.2016), and second child Bibiana (born 08.08.2018), both at [facility]. Father to children is Curtis Trujillo, SUSAN's . Records indicate there is a family history of Developmental Disability in the father's side (2 cousins to the father) and then MOB's side a cousin with Down's syndrome. Record indicates SUSAN has history of anxiety and is treated by Zoloft, including during this . No history of suicidal ideation or attempt reported. Support available from family. Assessment: Met with MOB and FOB at baby's bedside in the [facility]. This poem writer also provides the social work services to the [facility], for continuity of care of families who are admitted to the [facility] from [facility]. MOB reports to be ready for discharge with baby. Denies any concerns with home going. To remain on Zoloft in the period. Accepted information packet on mood and anxiety disorders. MOB and FOB report to have helpers lined up to help MOB at home for the next few weeks. MOB holding baby, attentive and no concerns identified by [facility] labor and delivery unit or the [facility] staff regarding mother/child bonding or interactions. Plan: MOB and baby to home when ready, likely later today. MOB accepting of informational packet on mood and anxiety disorders, including local resources should MOB need additional support for such in the future. No further needs requested or indicated. -DANILO Chacon, SUPERVISOR VEGETABLE FARMING
== END 2020-08-01 12:42 | disposition home or self-care (01) | DRG 807 ==
LOC: WPOUT 00:28 → WP 00:28
PROVIDERS: Admitting Provider Obstetrics & Gynecology; Visit Provider Obstetrics & Gynecology
DX: O70.0 First degree perineal laceration during delivery (principal); Z37.0 Single live birth; Z3A.39 39 weeks gestation of pregnancy
CPT/HCPCS: 59025; 59050; 85025; 85461; 86850; 86900; 86901; 90384; 99218; J7120; A4216; G0378; J2790

== ENCOUNTER → 2021-11-28 | Outpatient (CLI) | payer OTHER, SELFPAY | END | disposition home or self-care (01) | PROVIDERS: Visit Provider Obstetrics & Gynecology | DX: N76.0 Acute vaginitis (principal) ==